=== PATIENT | female | born 1960 | race Caucasian/White ===

== ENCOUNTER 2016-10-05 10:39 | Emergency (ER) | payer OTHER ==
[~2016-10-05] VITALS: Ht 157.5 cm; Wt 93.4 kg
[~2016-10-05 10:39] MED LIST: ADVAIR 250-501 EACH INH; ASPIR 8181 MG PO; ATORVASTATIN CA40 M1 PO; BENZTROPINE MESY1 M1 PO; BYDUREON P2 MG/0.65 SC; BYDUREON2 M1 SC; CLOZARIL100 M1 PO; COLACE100 M1 PO; COLACE100 MG PO; FENOFIBRATE145 M1 PO; HALOPERIDOL2 MG/1 ML PO; LANTUS100 UNIT/1 SC; LATANOPROST2.5 ML OPH; LISINOPRIL20 MG PO; MAGOX 400400 MG PO; METFORMIN HCL500 M3 PO; METOPROLOL TART25 M1 PO; NOVAPLUS V0.09 MG/Ac INH; NOVOLOG MI100 UNIT/1; NOVOLOG100 UNIT/2; PERPHENAZINE16 M1 PO; PERPHENAZINE8 M1 PO; POLYETHYLENE G255 GM PO; PREDNICOT20 MG PO; QUETIAPINE FUM300 M1 PO; QUETIAPINE FUM400 M1 PO; SENNA8.6 M3 PO; SYMBICORT 16010.2 GM INH; TEGRETOL XR400 MG PO; TRICOR48 M1 PO; UNITHROID PO; XALATAN2.5 ML OPH; ZITHROMAX Z-PA250 M1 PO
--- NOTE | 2016-10-05 12:11 | ED MVC/FALL/TRAUMA COMPLAINT ---
History of Present Illness General Chief Complaint: Fall Stated Complaint: BIBA S/P FALL THIS AM Source: patient, family Exam Limitations: poor historian Vital Signs & Intake/Output Vital Signs & Intake/Output Vital Signs Date Time Temp Pulse Resp B/P Pulse O2 O2 Flow FiO2 Ox Delivery Rate 10/05 1342 97.8 95 18 159/87 99 Room Air 10/05 1120 97.3 106 18 149/86 96 Room Air Allergies Coded Allergies: fexofenadine (From [facility]) (BURNING SENSATION, EXCESSIVE URINATION, ALERT 06/24) Penicillins (Intermediate, BURNING SENSATION 04/22/16) Reconcile Medications Aspirin (Ecotrin) 81 MG TABLET.DR 1 TAB PO DAILY HEART/BLOOD (Reported) Atorvastatin Calcium 40 MG TABLET 1 TAB PO QPM CHOLESTEROL (Reported) Budesonide/Formoterol Fumarate (Symbicort 160-4.5 Mcg Inhaler) 10.2 GM HFA.AER.AD 1 PUF INH BID ASTHMA (Reported) Carbamazepine (Tegretol XR) (Unknown Strength) TAB.ER.12H (Unknown Dose) PO DAILY UNKNOWN (Reported) Clozapine (Clozaril) 100 MG TABLET 2 TAB PO BID MENTAL HEALTH (Reported) Docusate Sodium (Colace) 100 MG CAPSULE 1 CAP PO BID BOWEL REGIME (Reported) Exenatide Microspheres (Bydureon) 2 MG VIAL 2 MG SC ONCE A WEEK DIABETES ( Reported) Fenofibrate Nanocrystallized (Fenofibrate) 145 MG TABLET 1 TAB PO DAILY CHOLESTEROL/TRIGLYCERIDES (Reported) Insulin Aspart (Novolog) (Unknown Strength) VIAL (Unknown Dose) SEE SLIDING SCALE DIABETES (Reported) Insulin-Lantus (Lantus) 100 UNIT/1 ML VIAL 40 UNITS SC BID DIABETES (Reported ) Latanoprost (Xalatan) 2.5 ML DROPS 1 GTT OPH QPM BOTH EYES - GLAUCOMA ( Reported) Levothyroxine Sodium (Unithroid) 137 MCG TABLET 1 TAB PO DAILY AC THYROID ( Reported) Linagliptin (Tradjenta) 5 MG TABLET 1 TAB PO DAILY DIABETES (Reported) Lisinopril 20 MG TABLET 1 TAB PO DAILY BP (Reported) Metformin HCl 500 MG TABLET 1 TAB PO BID DIABETES (Reported) Metoprolol Tartrate 25 MG TABLET 1 TAB PO BID HEART/BP (Reported) Triage Note: BIBA, C/O DIZZINESS WHILE SMOKING A CIGARETTE, AT THE [facility]IAL [facility] OF [facility]. FELL FORWARD, LANDED ON FACE. MULTIPLE ABRASIONS TO FACE. C/O PAIN IN NOSE, FACE AND KNEES. Triage Nurses Notes Reviewed? yes Onset: Just prior to arrival Duration: minute(s): Timing: no prior history Severity: moderate Severity Numbers: 7 Injuries/Fall Location: face, lower extremity Method of Injury: fall Loss of Consciousness: no loss of consciousness Modifying Factors: Worsens With: movement. HPI: Patient is a 56-year-old female with history of diabetes, hypertension, hyperlipidemia, depression presenting to the emergency department via ambulance with her sister with chief complaint of fall and head injury. She reports that she was at the social club at [facility], she went outside to smoke a cigarette became lightheaded and fell forward landing on her face. She denies actually passing out. She was able to get up with assistance of others immediately after the fall. Denies any chest pain palpitations. No nausea or vomiting fevers or chills. She reports that she's been feeling well. She reports that she feels well at this time except her nose hurts. Pain is achy throbbing worse with palpation. Denies any nosebleeds. No visual changes. Denies any changes in hearing. Chest reports left knee pain meds achy throbbing. She fell onto her left knee. Denies any neck pain or back pain. (TONNY WHEELER) Past History Travel History Traveled to [place] past 21 day No Medical History Any Pertinent Medical History? see below for history Neurological: NONE EENT: NONE Cardiovascular: hypertension, hyperlipidemia, RBBB Respiratory: asthma Gastrointestinal: NONE Hepatic: NONE Renal: NONE Musculoskeletal: NONE Psychiatric: schizo affective disorder Endocrine: hypothyroidism, Type II DM Blood Disorders: NONE Cancer(s): NONE PARK GUIDE/Reproductive: NONE Other Medical Hx: Constipation. History of MRSA: No History of VRE: No History of CDIFF: No Surgical History Surgical History: non-contributory Psychosocial History Who do you live with Patient/Self What is your primary language Chadian Tobacco Use: Quit >30 days ago ETOH Use: denies use Family History Family History, If Any: FATHER (DIABETES). Relation not specified for: *No pertinent family history Hx Contributory? No (TONNY WHEELER) Review of Systems Review of Systems Constitutional: Reports: no symptoms. Comments Review of systems: See HPI, All other systems negative. Constitutional, no chills fever or weight loss HEENT: No visual changes no sore throat no congestion Cardiovascular: No chest pain ,palpitation , orthopnea or ankle swelling Skin, no jaundice no rashes Respiratory: No dyspnea cough sputum or hemoptysis GI: No nausea no vomiting : No dysuria No hematuria Muscle skeletal: no back pain, no neck pain, Neurologic: No numbness no confusion no headache Psych: No increased stress anxiety or depression,. Heme/endocrine: No bruising no bleeding no polyuria or polydipsia Immunology: No splenectomy or history of AIDS (TONNY WHEELER) Physical Exam Physical Exam General Appearance: well developed/nourished, no apparent distress, alert, awake , comfortable Comments: Well-developed well-nourished person in no acute distress HEENT: extraocular motion intact, no nystagmus. Pupils equally round and reactive to light and accommodation. Nose is tender to palpation with moderate edema and ecchymosis noted. Superficial abrasions noted over the nose.. External auditory canal and Tympanic membranes clear. Pharynx normal. No swelling or edema. Neck: Supple, no lymphadenopathy, normal range of motion without pain or tenderness Back: Nontender, no CVA tenderness. Full range of motion Cardiovascular: Regular rate and rhythms no murmurs rubs or gallops, normal JVP Respiratory: Chest nontender. No respiratory distress.breath sounds clear to auscultation bilaterally Extremity: No edema, no calf tenderness to palpation, normal and equal pulses. Tender to palpation over the left patella with superficial abrasion present. Negative anterior and posterior drawer test on the left patella. Neuro: Alert oriented x3, motor sensory normal, cranial nerves II through XII grossly intact. No testing is unremarkable. Skin: Superficial abrasions noted to the nose, the left knee, left elbow. Psych: Mood and affect is normal, memory and judgment is normal. Core Measures ACS in differential dx? No Severe Sepsis Present: No Septic Shock Present: No (TONNY WHEELER) Progress Differential Diagnosis: ORTHOSTATIC HYPOTENSION, ELECTROLYTE ABDOMEN ONLY, DEHYDRATION, CARDIAC DYSRHYTHMIA, AFFECTS FROM TOBACCO, NASAL FRACTURE, KNEE FRACTURE, CONTUSION, MINOR HEAD INJURY, CONCUSSION Plan of Care: Orders Procedure Date/time Status MISTAKE 10/05 1212 Active Telemetry/Point Of Care Specialist 01/18 1212 Active URINE DRUG SCREEN FOR ER ONLY 10/05 121 Complete TROPONIN LEVEL 10/05 121 Complete ETHANOL 10/05 121 Complete COMPREHENSIVE METABOLIC PANEL 10/05 1211 Complete CBC WITHOUT DIFFERENTIAL 10/05 1211 Complete EKG 10/05 112 Active Laboratory Tests 10/05/16 1342: Urine Opiates Screen < 100.00, Methadone Screen < 40, Barbiturate Screen < 60, Ur Phencyclidine Scrn < 6.00, Amphetamines Screen < 100, U Benzodiazepines Scrn < 85, Urine Cocaine Screen < 50, Urine Cannabis Screen < 5.00 10/05/16 1223: Anion Gap 14, Estimated GFR > 60, BUN/Creatinine Ratio 12.0, Glucose 286 H, Calcium 9.9, Total Bilirubin 0.4, AST 42 H, ALT 62 H, Alkaline Phosphatase 84, Troponin I < 0.01, Total Protein 7.5, Albumin 4.4, Globulin 3.1, Albumin/ Globulin Ratio 1.4, CBC w Diff NO MAN DIFF REQ, RBC 4.72, MCV 83.7, MCH 28.5, RDW 14.4, MPV 8.8, Gran % 78.8 H, Lymphocytes % 13.9 L, Monocytes % 4.6, Eosinophils % 2.3, Basophils % 0.4, Absolute Granulocytes 6.2, Absolute Lymphocytes 1.1 L, Absolute Monocytes 0.4, Absolute Eosinophils 0.2, Absolute Basophils 0, PUBS MCHC 34.0, Serum Alcohol < 10.0 Diagnostic Imaging: Viewed by Me: Radiology Read, CT Scan. Discussed w/RAD: Radiology Read, CT Scan. Radiology Impression: PATIENT: FRANKI TINEO PRESENT AGE: 56 PATIENT ACCOUNT NO: [id number] : 56 LOCATION: [facility] ORDERING PHYSICIAN: TONNY FERRER SERVICE DATE: 10/05/16-1211 EXAM TYPE: CAT - CT HEAD WO IV CONTRAST; CT MAXILLOFACIAL W/O CON EXAMINATION: CT HEAD WITHOUT CONTRAST CT MAXILLOFACIAL WITHOUT CONTRAST CLINICAL INFORMATION: 56 -year-old female with history of fall and head strike. Pain and swelling. Possible nasal bone fracture. COMPARISON: CT of the head, 04/20/2016. TECHNIQUE: Contiguous axial imaging was performed from the skull base to vertex without intravenous administration of contrast. Axial images are presented at 0.625 mm, 2.5 mm and 5 mm slice thickness. Also, noncontrast CT imaging of maxillofacial bones was performed. In addition to the standard set of axial images, coronal and sagittal reformatted images were generated and reviewed. DLP: 1328 mGy-cm. FINDINGS: CT HEAD - There is atherosclerotic calcification of cavernous carotid arteries and of the right vertebral artery. No acute major vascular territory infarction. The morton-white matter differentiation is maintained. No intracranial hemorrhage, extra-axial fluid collection, focal mass effect or midline shift. There is mild atrophy of the cerebral hemispheres associated with symmetric prominence of ventricles, sulci and cisterns. The calvarium is intact and the mastoid air cells and middle ear cavities are clear. No acute findings within the head compared to 04/20/2016. FACIAL BONES - The maxilla, mandible and temporomandibular joints are unremarkable. The orbital bergeron, including lamina papyracea, are intact. The globes, orbital apex, optic canals, and retrobulbar fat planes are normal. Nasal bones, pterygoid plates and zygomatic arches are intact. Soft tissues of the nose are swollen. The inferior third of the nasal septum is deviated to the left of midline and there is a small left-sided nasal septal spur. There is no acute fracture within the nasal septum. The paranasal sinuses are well-aerated and the ostiomeatal units are patent. The atlas, axis and atlantoaxial articulation are intact. At C2-C3, there is predominantly left- sided facet arthropathy with minimal degenerative anterolisthesis of C2 on C3. At C4-C5, there is moderate degenerative disc space narrowing, endplate irregularity, vertebral osteophyte formation and bilateral uncovertebral joint hypertrophy. No prevertebral edema.. IMPRESSION: 1. No acute intracranial pathology compared to 04/20/2016. 2. Soft tissue swelling of the nose without evidence of an acute, displaced nasal bone fracture or other acute maxillofacial bone injury., PATIENT: FRANKI TINEO PRESENT AGE: 56 PATIENT ACCOUNT NO: [id number] : 56 LOCATION: [facility] ORDERING PHYSICIAN: TONNY FERRER SERVICE DATE: 10/05/16 EXAM TYPE: RAD - XRY-KNEE COMPLETE LEFT EXAMINATION: XR KNEE, LEFT CLINICAL INFORMATION: Pain status post fall. COMPARISON: None. TECHNIQUE: 4 views. FINDINGS: Bone mineral density is maintained without evidence of fracture or dislocation. No focal osseous lesions are seen. There is mild tricompartmental joint space narrowing most severe in the patellofemoral joint compartment with early marginal osteophyte identified off the superior pole of patella. There is a small joint effusion. IMPRESSION: No fracture or dislocation. Degenerative changes as noted. Small joint effusion. DICTATED BY: MARIA ALEJANDRA OLIVA MD DATE/TIME DICTATED:10/05/161426 CARDIAC/VASCULAR SONOGRAPHER:LORETTA DATE/TIME TRANSCRIBED:10/05/161426 CONFIDENTIAL, DO NOT COPY WITHOUT APPROPRIATE AUTHORIZATION. <Electronically signed in Other Vendor System> SIGNED BY: MARIA ALEJANDRA OLIVA MD 10/05/16 0565 Initial ED EKG: SINUS RHYTHM AT 88 BPM, LEFT ATRIAL ABNORMALITY, RIGHT BUNDLE BRANCH BLOCK Prior EKG: unchanged Comments: Declined pain medication or ice pack on arrival. Patient will go for CT to rule out any intracranial process or nasal fracture. Patient will also have further workup although she does deny any syncopal episodes she did report dizziness. Neurologically intact on exam. Patient informed of all lab results and imaging results. No signs of nasal fracture. Likely minor head injury. Patient will follow up PCP. Patient nontoxic. (TONNY WHEELER) Departure Departure Disposition: HOME OR SELF CARE Condition: Stable Clinical Impression Primary Impression: Minor head injury Qualifiers: Encounter type: initial encounter Qualified Code: S00.90XA - Unspecified superficial injury of unspecified part of head, initial encounter Referrals: JESSI FINK (PCP/Family) Additional Instructions: Follow-up with your primary care physician call to make an appointment. Increase fluids. Apply ice to affected areas. Take Motrin or Tylenol as directed for any aches or pains. Departure Forms: Customer Survey General Discharge Information (TONNY WHEELER) PA/QUALITY CONTROL INDUSTRIAL ENGINEER Co-Sign Statement Statement: ED Attending supervision documentation- [] I saw and evaluated the patient. I have also reviewed all the pertinent lab results and diagnostic results. I agree with the findings and the plan of care as documented in the PA's/QUALITY CONTROL INDUSTRIAL ENGINEER's documentation. x I have reviewed the ED Record and agree with the PA's/QUALITY CONTROL INDUSTRIAL ENGINEER's documentation. [] Additions or exceptions (if any) to the PAs/QUALITY CONTROL INDUSTRIAL ENGINEER's note and plan are summarized below: [] (NORMA BATISTA,JOO)
[2016-10-05] MEDS ORDERED: TRADJENTA5 M1 PO (12:38)
[2016-10-05 12:43] LABS: ABSOLUTE BASOPHIL COUNT 0 /CUMM (0.0-0.2); ABSOLUTE EOSINOPHIL COUNT 0.2 /CUMM (0.0-0.7); ABSOLUTE GRANULOCYTE CT 6.2 /CUMM (1.4-6.5); ABSOLUTE LYMPH COUNT 1.1 /CUMM (1.2-3.4); ABSOLUTE MONOCYTE COUNT 0.4 /CUMM (0.10-0.60); BASOPHIL % 0.4 % (0.0-2.0); EOSINOPHIL % 2.3 % (0-5); GRANULOCYTE % 78.8 % (42.2-75.2); HEMATOCRIT 39.5 % (37-47); MEAN CORPUSCULAR HGB 28.5 PG (27.0-31.0); MEAN CORPUSCULAR VOLUME 83.7 FL (81.0-99.0); MEAN PLATELET VOLUME 8.8 FL (7.4-10.4); PLATELET COUNT 257 /CUMM (130-400); RBC DISTRIBUTION WIDTH 14.4 % (11.5-14.5); RED BLOOD CELL CT 4.72 /CUMM (4.20-5.40); WHITE BLOOD CELL COUNT 7.8 /CUMM (4.8-10.8)
[2016-10-05 13:42] VITALS: BP 159/87
--- NOTE | 2016-10-05 13:50 | CT SCAN REPORT ---
EXAMINATION: CT HEAD WITHOUT CONTRAST CT MAXILLOFACIAL WITHOUT CONTRAST CLINICAL INFORMATION: 56-year-old female with history of fall and head strike. Pain and swelling. Possible nasal bone fracture. COMPARISON: CT of the head, 04/20/2016. TECHNIQUE: Contiguous axial imaging was performed from the skull base to vertex without intravenous administration of contrast. Axial images are presented at 0.625 mm, 2.5 mm and 5 mm slice thickness. Also, noncontrast CT imaging of maxillofacial bones was performed. In addition to the standard set of axial images, coronal and sagittal reformatted images were generated and reviewed. DLP: 1328 mGy-cm. FINDINGS: CT HEAD - There is atherosclerotic calcification of cavernous carotid arteries and of the right vertebral artery. No acute major vascular territory infarction. The morton-white matter differentiation is maintained. No intracranial hemorrhage, extra-axial fluid collection, focal mass effect or midline shift. There is mild atrophy of the cerebral hemispheres associated with symmetric prominence of ventricles, sulci and cisterns. The calvarium is intact and the mastoid air cells and middle ear cavities are clear. No acute findings within the head compared to 04/20/2016. FACIAL BONES - The maxilla, mandible and temporomandibular joints are unremarkable. The orbital bergeron, including lamina papyracea, are intact. The globes, orbital apex, optic canals, and retrobulbar fat planes are normal. Nasal bones, pterygoid plates and zygomatic arches are intact. Soft tissues of the nose are swollen. The inferior third of the nasal septum is deviated to the left of midline and there is a small left-sided nasal septal spur. There is no acute fracture within the nasal septum. The paranasal sinuses are well-aerated and the ostiomeatal units are patent. The atlas, axis and atlantoaxial articulation are intact. At C2-C3, there is predominantly left-sided facet arthropathy with minimal degenerative anterolisthesis of C2 on C3. At C4-C5, there is moderate degenerative disc space narrowing, endplate irregularity, vertebral osteophyte formation and bilateral uncovertebral joint hypertrophy. No prevertebral edema.. IMPRESSION: 1. No acute intracranial pathology compared to 04/20/2016. 2. Soft tissue swelling of the nose without evidence of an acute, displaced nasal bone fracture or other acute maxillofacial bone injury.
--- NOTE | 2016-10-05 14:32 | RADIOLOGY REPORT ---
EXAMINATION: XR KNEE, LEFT CLINICAL INFORMATION: Pain status post fall. COMPARISON: None. TECHNIQUE: 4 views. FINDINGS: Bone mineral density is maintained without evidence of fracture or dislocation. No focal osseous lesions are seen. There is mild tricompartmental joint space narrowing most severe in the patellofemoral joint compartment with early marginal osteophyte identified off the superior pole of patella. There is a small joint effusion. IMPRESSION: No fracture or dislocation. Degenerative changes as noted. Small joint effusion.
== END 2016-10-05 14:59 ==
LOC: ERH 10:39
PROVIDERS: Physician Assistant
DX: S09.90XA Unspecified injury of head, initial encounter (principal); R42 Dizziness and giddiness; S80.212A Abrasion, left knee, initial encounter; S50.312A Abrasion of left elbow, initial encounter; I10 Essential (primary) hypertension; E11.9 Type 2 diabetes mellitus without complications; Z79.84 Long term (current) use of oral hypoglycemic drugs
CPT/HCPCS: 73562-LT; 80307; 90471; 90714; 93005; 93010; G0480

== ENCOUNTER 2016-11-02 11:04 | Emergency (ER) | payer OTHER ==
[~2016-11-02 11:04] MED LIST changes: +TRADJENTA5 M1 PO
--- NOTE | 2016-11-02 11:10 | ED PSY CRISIS COLLATERAL NOTE ---
Collateral Note Collateral Note Family/Inform/Celia Contacts: Eleonora and [facility] called to inform that they sent pt to the ED because she is presenting as paranoid, delusional, hyperverbal, and nonsensical. She is currently in [facility]. She has a hx of multiple inpt psych admits including at [facility].
--- NOTE | 2016-11-02 11:29 | ED PSYCHIATRIC COMPLAINT ---
History of Present Illness General Chief Complaint: Psychiatric Related Complaint Stated Complaint: +HI Source: patient, old records, EMS Exam Limitations: unable to give history, clinical condition, confusion Vital Signs & Intake/Output Vital Signs & Intake/Output Vital Signs Date Time Temp Pulse Resp B/P Pulse O2 O2 Flow FiO2 Ox Delivery Rate 11/024 96.9 118 20 134/72 98 Room Air 11/02 2015 96.3 93 93 96/52 94 Room Air 11/02 1433 98.1 78 18 138/76 97 Room Air ED Intake and Output 11/03 0000 11/02 1200 Intake Total 200 Output Total Balance 200 Intake, Oral 200 Allergies Coded Allergies: fexofenadine (From ASIA) (BURNING SENSATION, EXCESSIVE URINATION, ALERT 06/24) Penicillins (Intermediate, BURNING SENSATION 04/22/16) Reconcile Medications Aspirin (Ecotrin) 81 MG TABLET.DR 1 TAB PO DAILY HEART/BLOOD (Reported) Atorvastatin Calcium 40 MG TABLET 1 TAB PO QPM CHOLESTEROL (Reported) Budesonide/Formoterol Fumarate (Symbicort 160-4.5 Mcg Inhaler) 10.2 GM HFA.AER.AD 1 PUF INH BID ASTHMA (Reported) Carbamazepine (Tegretol XR) (Unknown Strength) TAB.ER.12H (Unknown Dose) PO DAILY UNKNOWN (Reported) Clozapine (Clozaril) 100 MG TABLET 2 TAB PO BID MENTAL HEALTH (Reported) Docusate Sodium (Colace) 100 MG CAPSULE 1 CAP PO BID BOWEL REGIME (Reported) Exenatide Microspheres (Bydureon) 2 MG VIAL 2 MG SC ONCE A WEEK DIABETES ( Reported) Fenofibrate Nanocrystallized (Fenofibrate) 145 MG TABLET 1 TAB PO DAILY CHOLESTEROL/TRIGLYCERIDES (Reported) Insulin Aspart (Novolog) (Unknown Strength) VIAL (Unknown Dose) SEE SLIDING SCALE DIABETES (Reported) Insulin-Lantus (Lantus) 100 UNIT/1 ML VIAL 40 UNITS SC BID DIABETES (Reported ) Latanoprost (Xalatan) 2.5 ML DROPS 1 GTT OPH QPM BOTH EYES - GLAUCOMA ( Reported) Levothyroxine Sodium (Unithroid) 137 MCG TABLET 1 TAB PO DAILY AC THYROID ( Reported) Linagliptin (Tradjenta) 5 MG TABLET 1 TAB PO DAILY DIABETES (Reported) Lisinopril 20 MG TABLET 1 TAB PO DAILY BP (Reported) Metformin HCl 500 MG TABLET 1 TAB PO BID DIABETES (Reported) Metoprolol Tartrate 25 MG TABLET 1 TAB PO BID HEART/BP (Reported) Triage Nurses Notes Reviewed? yes Onset: Just prior to arrival Duration: minute(s):, constant, continues in ED, getting worse Timing: recent history Severity: severe Associated Symptoms: anxiety, impaired concentration LMP (ages 10-50): post menopausal : No Patient currently breastfeeds: No HPI: Patient referred by [facility] for paranoia delusion hostility aggressive behavior and confusion with history of schizoaffective disorder. She denies fever chills nausea vomiting diarrhea abdominal pain chest pain shortness breath headache dysuria rash bleeding suicidal ideation. (JOO GREEN MD) Past History Travel History Traveled to [facility] past 21 day No Medical History Any Pertinent Medical History? 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 History of MRSA: No History of VRE: No History of CDIFF: No Tetanus Vaccine: 10/05/16 Surgical History Surgical History: non-contributory Psychosocial History Who do you live with Patient/Self What is your primary language Amharic Family History Family History, If Any: FATHER (DIABETES). Relation not specified for: *No pertinent family history Hx Contributory? No (JOO GREEN MD) Review of Systems Review of Systems Constitutional: Reports: no symptoms. EENTM: Reports: no symptoms. Respiratory: Reports: no symptoms. Cardiovascular: Reports: no symptoms. GI: Reports: no symptoms. Genitourinary: Reports: no symptoms. Musculoskeletal: Reports: no symptoms. Skin: Reports: no symptoms. Neurological/Psychological: Reports: see HPI, anxiety, cognitive dysfunction, confusion, emotional problems. Hematologic/Endocrine: Reports: no symptoms. Immunologic/Allergic: Reports: no symptoms. All Other Systems: Reviewed and Negative (JOO GREEN MD) Physical Exam Physical Exam General Appearance: well developed/nourished, alert, awake, anxious, severe distress, obese Head: atraumatic, normal appearance Eyes: Bilateral: normal appearance, PERRL, EOMI. 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 patient not suicidal (NORMA BATISTA,JOO) Progress Differential Diagnosis: drug intoxication, drug overdose, drug withdrawal, electrolyte abnormality, hypoglycemia Plan of Care: Laboratory Tests 11/03/16 0354: Urine Opiates Screen < 100.00, Methadone Screen 45, Barbiturate Screen < 60, Ur Phencyclidine Scrn < 6.00, Amphetamines Screen < 100, U Benzodiazepines Scrn < 85, Urine Cocaine Screen < 50, Urine Cannabis Screen < 5.00 11/02/16 1207: Anion Gap 11, Estimated GFR > 60, BUN/Creatinine Ratio 27.5 H, Glucose 244 H, Calcium 9.6, Total Bilirubin 0.6, AST 46 H, ALT 63 H, Alkaline Phosphatase 86, Total Protein 7.4, Albumin 4.2, Globulin 3.2, Albumin/Globulin Ratio 1.3, CBC w Diff NO MAN DIFF REQ, RBC 4.71, MCV 84.2, MCH 28.6, RDW 14.4, MPV 8.7, Gran % 72.9, Lymphocytes % 17.1 L, Monocytes % 7.2, Eosinophils % 2.3, Basophils % 0.5 , Absolute Granulocytes 6.3, Absolute Lymphocytes 1.5, Absolute Monocytes 0.6, Absolute Eosinophils 0.2, Absolute Basophils 0, PUBS MCHC 34.0, Serum Alcohol < 10.0 Hand-Off Endorsed To: GUANAKO XIE MD Endorsed Time: 1512 Pending: consult (JOO GREEN MD) Hand-Off Endorsed To: MICHELLE ROPER MD Endorsed Time: 2310 Pending: consult (CRISIS DISPOSITION) (GUANAKO XIE MD) Hand-Off Endorsed To: DRU KELLEY MD Endorsed Time: 0700 Pending: consult (DASIA BATISTA,MICHELLE Porter) Comments: 11/03/2016 11:40:40 AM patient signed out to me 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 She has been evaluated by the educational speech language clinician and the plan is for medication with Clozaril here in the emergency department and discharged with follow-up. He was brought to my attention by the educational speech language clinician that the patient has a rash of the abdomen. The patient has what appears to be a typical tinea corpora rash of the intertriginous folds of the abdomen and groin. (DRU KELLEY MD) Departure Departure Disposition: STILL A PATIENT Condition: Stable Referrals: JESSI FINK (PCP/Family) Departure Forms: Customer Survey General Discharge Information (JOO GREEN MD) Departure Clinical Impression Primary Impression: Schizoaffective disorder, manic type Secondary Impressions: Tinea corporis Additional Instructions: Continue your current medications. Follow-up as outlined with the educational speech language clinician (we have an appointment with your usual psychiatric provider on the of this month). Prescriptions: Current Visit Scripts Nystatin/Triamcin (Nystatin-Triamcinolone Cream) 1 ALLISON TOP BID PRN RASH #30 GM Ref 1 apply to affected area(s) (DRU KELLEY MD) Departure Forms: Customer Survey General Discharge Information (JOO GREEN MD)
[2016-11-02 12:17] LABS: ABSOLUTE BASOPHIL COUNT 0 /CUMM (0.0-0.2); ABSOLUTE EOSINOPHIL COUNT 0.2 /CUMM (0.0-0.7); ABSOLUTE GRANULOCYTE CT 6.3 /CUMM (1.4-6.5); ABSOLUTE LYMPH COUNT 1.5 /CUMM (1.2-3.4); ABSOLUTE MONOCYTE COUNT 0.6 /CUMM (0.10-0.60); BASOPHIL % 0.5 % (0.0-2.0); EOSINOPHIL % 2.3 % (0-5); GRANULOCYTE % 72.9 % (42.2-75.2); HEMATOCRIT 39.7 % (37-47); MEAN CORPUSCULAR HGB 28.6 PG (27.0-31.0); MEAN CORPUSCULAR VOLUME 84.2 FL (81.0-99.0); MEAN PLATELET VOLUME 8.7 FL (7.4-10.4); PLATELET COUNT 240 /CUMM (130-400); RBC DISTRIBUTION WIDTH 14.4 % (11.5-14.5); RED BLOOD CELL CT 4.71 /CUMM (4.20-5.40); WHITE BLOOD CELL COUNT 8.6 /CUMM (4.8-10.8)
--- NOTE | 2016-11-03 10:20 | ED PSYCH CRISIS CONSULTATION ---
Crisis Consult Basic Assessment Date of Consult: 11/03/16 Responsible Person/Accompanied By: LONA, here alone. Insurance Authorization: Insurance #1: Insurance name: MARIANELA JAMES Phone number: Policy number: [id number] Group number: Authorization number: ED Provider: Patient's ED Provider: JOO GREEN MD Primary Care Physician: Patient's PCP: JESSI FINK PCP's Current Psychiatrist: [facility] Chief Complaint: Psychiatric Related Complaint Patient's Quote: "I just need to vent, it helps" Present Illness: Pt is a 56 year old female, with extensive psychiatric history. She arrived to ER from her outpatient provider [facility], for speaking non-sensically, and being hyperverbal. Pt is very chatty, and rambling bouncing from one topic to another. She is hyperverbal, she is oriented x3, and denies si/hi, ah/vh. She reports she "wants to live, I want to work", pt expresses anger towards how her sister treats her, and bring up things regarding unfairness in childhood. The patient resides in at [facility] residential facility. Patient has been hospitalized at [facility] on the following occasions:02/29/16 - 03/11/16, - 06/02/16, September 2012, December 2011, and December 2001. Pt is not belligerent, or disruptive. She does not have a drug and etoh history. Pt states a rash under her abdoment has been bothering her, I requested the Dr, take a look, and she will be treated as it was causing her concern. I spoke with Jazlyn at her [facility] she reports pt was just discharged from [facility] 09/27/16 after being hospitalized for almost 4 months. Pt had 3 solid weeks and was doing well. Pt continues to struggle with mood stability, and will see her outpatient providers on Tuesday 11/07 and 11/08. Patient's Address: [address] [place] [address] Other Who Do You Live With? Patient/Self Family/Informants Interviewed: Spoke with [facility] Allergies - Coded Allergies: fexofenadine (From ASIA) (BURNING SENSATION, EXCESSIVE URINATION, ALERT 06/24) Penicillins (Intermediate, BURNING SENSATION 04/22/16) Current Medications - Scheduled Medications Aspirin (Ecotrin) 81 MG TABLET.DR 1 TAB PO DAILY HEART/BLOOD (Reported) Entered as Reported by HUONG STAUFFER on 12/13/14 1628 Atorvastatin Calcium 40 MG TABLET 1 TAB PO QPM CHOLESTEROL (Reported) Entered as Reported by MARISOL WILLETT on 02/28/16 1005 Budesonide/Formoterol Fumarate (Symbicort 160-4.5 Mcg Inhaler) 10.2 GM HFA.AER.AD 1 PUF INH BID ASTHMA #10 (Reported) Entered as Reported by MARISOL WILLETT on 06/18/16 1414 Carbamazepine (Tegretol XR) (Unknown Strength) TAB.ER.12H (Unknown Dose) PO DAILY UNKNOWN #30 (Reported) Entered as Reported by HUONG STAUFFER on 04/15/16 1847 Clozapine (Clozaril) 100 MG TABLET 2 TAB PO BID MENTAL HEALTH #28 (Reported) Entered as Reported by MARISOL WILLETT on 06/18/16 1413 Docusate Sodium (Colace) 100 MG CAPSULE 1 CAP PO BID BOWEL REGIME (Reported) Entered as Reported by HUONG STAUFFER on 06/24/16 2125 Exenatide Microspheres (Bydureon) 2 MG VIAL 2 MG SC ONCE A WEEK DIABETES ( Reported) Entered as Reported by HUONG STAUFFER on 06/24/16 2151 Fenofibrate Nanocrystallized (Fenofibrate) 145 MG TABLET 1 TAB PO DAILY CHOLESTEROL/TRIGLYCERIDES #90 (Reported) Entered as Reported by HUONG STAUFFER on 04/15/16 1849 Insulin Aspart (Novolog) (Unknown Strength) VIAL (Unknown Dose) SEE SLIDING SCALE DIABETES (Reported) Entered as Reported by MARISOL WILLETT on 06/18/16 1418 Insulin-Lantus (Lantus) 100 UNIT/1 ML VIAL 40 UNITS SC BID DIABETES #30 VIAL (Reported) Entered as Reported by MARISOL WILLETT on 06/18/16 1417 Latanoprost (Xalatan) 2.5 ML DROPS 1 GTT OPH QPM BOTH EYES - GLAUCOMA ( Reported) Entered as Reported by MARISOL WILLETT on 02/28/16 1444 Levothyroxine Sodium (Unithroid) 137 MCG TABLET 1 TAB PO DAILY AC THYROID ( Reported) Entered as Reported by HUONG STAUFFER on 12/13/14 1629 Linagliptin (Tradjenta) 5 MG TABLET 1 TAB PO DAILY DIABETES #15 (Reported) Entered as Reported by MARISOL WILLETT on 10/05/16 1238 Lisinopril 20 MG TABLET 1 TAB PO DAILY BP (Reported) Entered as Reported by HUONG STAUFFER on 12/13/14 1628 Metformin HCl 500 MG TABLET 1 TAB PO BID DIABETES (Reported) Entered as Reported by HUONG STAUFFER on 12/13/14 1630 Metoprolol Tartrate 25 MG TABLET 1 TAB PO BID HEART/BP (Reported) Entered as Reported by MARISOL WILLETT on 02/28/16 1006 Scheduled PRN Medications Nystatin/Triamcin (Nystatin-Triamcinolone Cream) 100,000 UNIT/GRAM-0.1 % CREAM..G. 1 ALLISON TOP BID PRN RASH #30 GM Prescribed by TYLER KELLEY MDORY on 11/03/16 Laboratory Results: Laboratory Tests 11/03/16 0354: Urine Opiates Screen < 100.00, Methadone Screen 45, Barbiturate Screen < 60, Ur Phencyclidine Scrn < 6.00, Amphetamines Screen < 100, U Benzodiazepines Scrn < 85, Urine Cocaine Screen < 50, Urine Cannabis Screen < 5.00 11/02/16 1207: Anion Gap 11, Estimated GFR > 60, BUN/Creatinine Ratio 27.5 H, Glucose 244 H, Calcium 9.6, Total Bilirubin 0.6, AST 46 H, ALT 63 H, Alkaline Phosphatase 86, Total Protein 7.4, Albumin 4.2, Globulin 3.2, Albumin/Globulin Ratio 1.3, CBC w Diff NO MAN DIFF REQ, RBC 4.71, MCV 84.2, MCH 28.6, RDW 14.4, MPV 8.7, Gran % 72.9, Lymphocytes % 17.1 L, Monocytes % 7.2, Eosinophils % 2.3, Basophils % 0.5 , Absolute Granulocytes 6.3, Absolute Lymphocytes 1.5, Absolute Monocytes 0.6, Absolute Eosinophils 0.2, Absolute Basophils 0, PUBS MCHC 34.0, Serum Alcohol < 10.0 Past History Past Medical History Neurological: NONE EENT: NONE Cardiovascular: hypertension, hyperlipidemia, RBBB Respiratory: asthma Gastrointestinal: NONE Hepatic: NONE Renal: NONE Musculoskeletal: NONE Psychiatric: schizo affective disorder Endocrine: hypothyroidism, Type II DM Blood Disorders: NONE Cancer(s): 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 Physical Limitations (Interventions): None noted Psychiatric Treatment History Psych Treatment Psychiatric Treatment Yes Inpatient Treatment Yes Outpatient Treatment Yes Location of Treatment [facility] and [facility] Reason for Treatment schizoaffective d/o Dates of Treatment currently involved with [facility], last admission was in 2015. Response to Treatment pt stabilizes but struggles to maintain mental wellness Diagnosis by History: Schizoaffective Disorder Substance Use/Abuse History Drug Use/Abuse Substances Used/Abused No Substance Abuse Treatment Substance Abuse Treatment Past Substance Abuse [place] No Current Mental Status Mental Status Orientation: Person, Place, Situation Affect: Angry, Manic, Variable Speech: Hyper-verbal, Pressured Neuro-vegetative: Energy Increased, Hyperactivity Appearance Appearance- Dress/Hygiene: Unkempt, obese, in hospital attire. Behaviors Thought Process: Disorganized, Flight of Ideas, Tangential Thought Content: Grandiose, Ideas of Reference Memory: Impaired Insight: Poor SI/HI Risk Assessment Past Suicidal Ideation/Attempts Yes Current Suicidal Ideation/Att No Past Homicidal Ideation/Att: No Current Homicidal Ideation/Attempts No Degree of Intent: None Risk Factors: high anxiety/distress, SA/MH hospitalized Lethality Ratin (mild) PTSD Checklist PTSD Done? pt unable to participate ED Management Sitter: Yes Restraints: No DSM5/PS Stressors/Medical Prob Diagnosis' (DSM 5, Stressors, Medical): schizoaffective D/O Current GAF: 32 Departure Disposition Psych Medical Clearance Date: 11/03/16 Medically Cleared at: 1149 Time Started: 1149 Time Ended: 1249 Psychiatrist Consulted: Luiz Quigley MD Date Disposition Established: 11/03/16 Time Disposition Established: 1150 Plan for Disposition - Modality: Outpatient Facility: [facility] Follow-up Appt Date: 11/07/16 Follow-Up Appt Time: 1100 Contact: katy at [facility] Rationale for Disposition: consulted with Dr. Quigley, and current providers at [facility] including staff at [facility], and they were understandable around the plan to discharge her home, and stated if she became unmanageable they would call an ambulance again, if they felt she could not be maintained. Pt wants to return home and denies si/hi/ ah/vh. Referrals JESSI FINK (PCP/Family)
[2016-11-03] MEDS ORDERED: NYSTATIN-TRIAMC15 GM TOP (11:44)
[2016-11-03] MEDS ORDERED: MIRALAX17 G1 PO (13:58)
[2016-11-03 13:59] VITALS: BP 130/68
== END 2016-11-03 17:07 ==
LOC: ERH 11:04
PROVIDERS: Emergency Medicine
DX: F25.0 Schizoaffective disorder, bipolar type (principal); B35.4 Tinea corporis
CPT/HCPCS: 80307; 96372; G0463; G0480; J1200

== ENCOUNTER 2016-12-23 00:54 | Emergency (ER) | payer OTHER ==
[~2016-12-23] VITALS: Ht 157.5 cm; Wt 94.3 kg
[~2016-12-23 00:54] MED LIST changes: +MIRALAX17 G1 PO; +NYSTATIN-TRIAMC15 GM TOP
--- NOTE | 2016-12-23 01:40 | RADIOLOGY REPORT ---
EXAMINATION: XR CHEST CLINICAL INFORMATION: Pneumonia. Productive cough COMPARISON: Chest x-ray 06/18/2016 TECHNIQUE: 2 views of the chest were obtained. FINDINGS: Lungs are clear. No pulmonary vascular congestion. No infiltrate or pleural effusion. The heart size is normal. The cardiac and mediastinal contours are normal. There are multilevel degenerative changes of dorsal spine. IMPRESSION: Normal chest.
--- NOTE | 2016-12-23 02:04 | ED GENERAL ADULT ---
History of Present Illness General Chief Complaint: General Adult Stated Complaint: "BIBA PER EMS WANTS TO TALK TO SOMEONE" Source: patient, old records, EMS Exam Limitations: no limitations Vital Signs & Intake/Output Vital Signs & Intake/Output Vital Signs Date Time Temp Pulse Resp B/P Pulse O2 O2 Flow FiO2 Ox Delivery Rate 12/23 601 97.3 97 19 136/93 98 Room Air 12/23 0100 98 Room Air 12/23 010 98.0 118 18 119/75 98 Room Air Allergies Coded Allergies: fexofenadine (From ASIA) (BURNING SENSATION, EXCESSIVE URINATION, ALERT 12/23) Penicillins (Intermediate, BURNING SENSATION 12/23/16) Reconcile Medications Albuterol Sulfate (Proair Hfa) 90 MCG HFA.AER.AD 2-4 PUF INH Q4-6 PRN PRN cough Aspirin (Ecotrin) 81 MG TABLET.DR 1 TAB PO DAILY HEART/BLOOD (Reported) Atorvastatin Calcium 40 MG TABLET 1 TAB PO QPM CHOLESTEROL (Reported) Budesonide/Formoterol Fumarate (Symbicort 160-4.5 Mcg Inhaler) 10.2 GM HFA.AER.AD 1 PUF INH BID ASTHMA (Reported) Clozapine (Clozaril) 100 MG TABLET 2 TAB PO BID MENTAL HEALTH (Reported) Docusate Sodium (Colace) 100 MG CAPSULE 1 CAP PO BID BOWEL REGIME (Reported) Fenofibrate Nanocrystallized (Fenofibrate) 145 MG TABLET 1 TAB PO DAILY CHOLESTEROL/TRIGLYCERIDES (Reported) Insulin-Lantus (Lantus) 100 UNIT/1 ML VIAL 62 UNITS SC BID DIABETES (Reported ) Latanoprost (Xalatan) 2.5 ML DROPS 1 GTT OPH QPM BOTH EYES - GLAUCOMA ( Reported) Levothyroxine Sodium (Unithroid) 137 MCG TABLET 1 TAB PO DAILY AC THYROID ( Reported) Linagliptin (Tradjenta) 5 MG TABLET 1 TAB PO DAILY DIABETES (Reported) Lisinopril 20 MG TABLET 1 TAB PO DAILY BP (Reported) Metformin HCl 500 MG TABLET 1 TAB PO BID DIABETES (Reported) Metoprolol Tartrate 25 MG TABLET 1 TAB PO BID HEART/BP (Reported) Polyethylene Glycol 3350 (Miralax) 17 GRAM POWD.PACK 1 PAC PO DAILY BOWELS ( Reported) dissolve in water Core Measure Meds Pre-Hospital aspirin Triage Note: TRIAGE: PATIENT BIBA FROM [facility] STATING "WANT TO TALK TO SOMEONE." MD GREEN AT BEDSIDE W/ THIS RN IN TRIAGE, PATIENT REPORTING "CONSTIPATION X 1 WEEK, WANT AN ENEMA. ALSO PRODUCTIVE COUGH W/ YELLOW PHLEM." PATIENT CHANGED SELF W/O ASSIST FOR XRAY. NO ACUTE RESP DISTRESS NOTED, SPEECH CLEAR AND NON-LABORED. Triage Nurses Notes Reviewed? yes Onset: Just prior to arrival Duration: day(s):, continues in ED Timing: recent history Injury Environment: home Severity: mild No Modifying Factors: none Associated Symptoms: cough LMP (ages 10-50): post menopausal : No Patient currently breastfeeds: No HPI: USP report patient awoke from a bad dream and had diarrhea. The patient reports she's had a productive cough with constipation for a week. She denies fever chills nausea vomiting diarrhea abdominal pain dysuria rash bleeding suicidal ideation homicidal ideation hallucination. She declines crisis evaluation at this time. Past History Travel History Traveled to [place] past 21 day No Medical History Any Pertinent Medical History? 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 History of MRSA: No History of VRE: No History of CDIFF: No Tetanus Vaccine: 10/05/16 Surgical History Surgical History: non-contributory Psychosocial History Who do you live with Patient/Self What is your primary language Turkmen Tobacco Use: Refused to answer Family History Family History, If Any: FATHER (DIABETES). Relation not specified for: *No pertinent family history Hx Contributory? No Review of Systems Review of Systems Constitutional: Reports: no symptoms. EENTM: Reports: no symptoms. Respiratory: Reports: see HPI, cough, sputum production. Cardiovascular: Reports: no symptoms. GI: Reports: see HPI, constipation. Genitourinary: Reports: no symptoms. Musculoskeletal: Reports: no symptoms. Skin: Reports: no symptoms. Neurological/Psychological: Reports: no symptoms. Hematologic/Endocrine: Reports: no symptoms. Immunologic/Allergic: Reports: no symptoms. All Other Systems: Reviewed and Negative Physical Exam Physical Exam General Appearance: well developed/nourished, alert, awake, anxious, mild distress, obese Head: atraumatic, normal appearance Eyes: Bilateral: normal appearance, PERRL, EOMI. Ears, Nose, Throat: normal pharynx, normal ENT inspection Neck: normal inspection, supple, full range of motion, no midline tenderness Respiratory: normal breath sounds, chest non-tender, no respiratory distress, quiet respiration, lungs clear Cardiovascular: regular rate/rhythm, normal peripheral pulses, norml femoral pulses equa Peripheral Pulses: 4+ carotid (R), 4+ carotid (L) Gastrointestinal: normal bowel sounds, soft, non-tender, no organomegaly Back: normal inspection, normal range of motion Extremities: normal inspection, normal capillary refill, normal range of motion, no edema Neurologic/Psych: no motor/sensory deficits, awake, alert, oriented x 3 Reflexes: 2+: bicep (R), bicep (L). Skin: intact, normal color, warm/dry Lymphatic: no anterior cervical radha Core Measures ACS in differential dx? No CVA/TIA Diagnosis: No Severe Sepsis Present: No Septic Shock Present: No Progress Differential Diagnoses I considered the following diagnoses in my evaluation of the patient: bronchitis pneumonia Plan of Care: Laboratory Tests 12/23/16 0103: Methadone Screen Cancelled, Barbiturate Screen Cancelled, Ur Phencyclidine Scrn Cancelled, Amphetamines Screen Cancelled, U Benzodiazepines Scrn Cancelled, Urine Cocaine Screen Cancelled, Urine Cannabis Screen Cancelled Initial ED EKG: none Departure Departure Time of Disposition: 212 Disposition: HOME OR SELF CARE Condition: Stable Clinical Impression Primary Impression: Bronchitis Referrals: JESSI FINK (PCP/Family) Departure Forms: Customer Survey General Discharge Information Prescriptions: Current Visit Scripts Albuterol Sulfate (Proair Hfa) 2-4 PUF INH Q4-6 PRN PRN cough #1 INHAL Critical Care Note Critical Care Note Critical Care Time: non-applicable
[2016-12-23] MEDS ORDERED: PROAIR HFA8.5 GM INH (02:14)
[2016-12-23 06:02] VITALS: BP 136/93
== END 2016-12-23 06:44 ==
LOC: ERH 00:54
DX: J40 Bronchitis, not specified as acute or chronic (principal); R19.7 Diarrhea, unspecified
CPT/HCPCS: 80307